=== PATIENT | female | born 1935 | race Caucasian/White ===

== ENCOUNTER → 2018-01-16 | Outpatient (CLI) | payer MEDICARE, BC ==
--- NOTE | 2018-01-16 14:17 | XR ---
EXAMINATION TYPE: XR cervical spine comp DATE OF EXAM: 01/16/2018 COMPARISON: NONE HISTORY: Stiff neck, pain TECHNIQUE: Four views are submitted. FINDINGS: The odontoid is intact. There are no compression deformities. The prevertebral soft tissue structur es are within normal limits. There is severe degenerative disc disease C4-5, C5-6 and C6-C7 with pos terior spondylosis. Facet arthropathy at all levels. Foraminal encroachment C4-5 and C5-C6 bilaterall y and at C3-C4 on the left. IMPRESSION: 1. Multilevel severe degenerative disc disease and facet arthropathy with multilevel foraminal encroa chment. Recommend MRI.
== END | disposition home or self-care (01) ==
LOC: RADXRMAIN 13:47
PROVIDERS: ATTEND Family Medicine
DX: M50.321 Other cervical disc degeneration at C4-C5 level (principal); M46.82 Other specified inflammatory spondylopathies, cervical region
CPT/HCPCS: 72050

== ENCOUNTER → 2018-02-07 | Outpatient (CLI) | payer MEDICARE, BC ==
--- NOTE | 2018-02-07 20:00 | MR ---
EXAMINATION TYPE: MR cervical spine wo con DATE OF EXAM: 02/07/2018 COMPARISON: NONE HISTORY: Neck Pain and stiffness TECHNIQUE: Multiplanar, multisequence images of the cervical spine were acquired. FINDINGS: Altered level disc desiccation is seen most severe at C5-C6. Cervical spinal cord signal is unremarkable. Multilevel degenerative endplate changes are seen without suspicious bone marrow signa l. Vertebral body heights and alignment are maintained. C2-C3: No evidence for degenerative disc disease. No disc bulge/herniation or protrusion. No Canal stenosis. Foramina are patent bilaterally. C3-C4: Very small central posterior disc osteophyte complex is seen as well as mild uncovertebral hyp ertrophy mildly narrowing the left neural foramen. Right neuroforamen and spinal canal are patent. C4-C5: There is a large broad-based disc bulge and disc osteophyte complex as well as uncovertebral h ypertrophy and facet arthropathy severely narrowing the right neural foramen and mildly narrowing the spinal canal with impression on the ventral thecal sac. Left neural foramen is patent. C5-C6: There is a left paracentral disc herniation effacing the thecal sac and obliterating the ventr al subarachnoid space. This creates mild left neural foraminal narrowing. Right neuroforamen is paten t. There is also resultant mild spinal canal stenosis. C6-C7: Uncovertebral hypertrophy and facet arthropathy creates mild left neural foraminal narrowing. Spinal canal and neural foramen are patent. Disc desiccation without herniation. C7-T1: No evidence for degenerative disc disease. No disc bulge/herniation or protrusion. No Canal stenosis. Foramina are patent bilaterally. IMPRESSION: 1. Left paracentral disc herniation at C5-C6 creating mild spinal canal stenosis and mild left neural foraminal narrowing. 2. Large broad-based disc bulge at C4-C5 and degenerative changes severely narrowing the right neural foramen and creating mild spinal canal stenosis. 3. Mild multilevel degenerative disc disease as described above. No evidence of vertebral body height loss or malalignment.
== END | disposition home or self-care (01) ==
LOC: RADMRIMAIN 13:09
PROVIDERS: ATTEND Family Medicine
DX: M48.02 Spinal stenosis, cervical region (principal); M99.71 Connective tissue and disc stenosis of intervertebral foramina of cervical region; M50.221 Other cervical disc displacement at C4-C5 level; M50.30 Other cervical disc degeneration, unspecified cervical region; M47.812 Spondylosis without myelopathy or radiculopathy, cervical region
CPT/HCPCS: 72141

== ENCOUNTER → 2019-04-04 | Outpatient (CLI) | payer MEDICARE, BC ==
--- NOTE | 2019-04-04 10:50 | XR ---
EXAMINATION TYPE: XR knee complete LT DATE OF EXAM: 04/04/2019 CLINICAL HISTORY: pain TECHNIQUE: Three views of the left knee are obtained. COMPARISON: None. FINDINGS: There is no acute fracture/dislocation. The tri-compartment joint spaces appear within no rmal limits. The overlying soft tissue appears unremarkable. IMPRESSION: There is no acute fracture or dislocation ICD 10 NO FRACTURE, INITIAL EVALUATION
== END | disposition home or self-care (01) ==
LOC: RADXRMAIN 04-03 10:12
PROVIDERS: ATTEND Family Medicine
DX: M25.562 Pain in left knee (principal)

== ENCOUNTER → 2022-06-22 | Outpatient (CLI) | payer MEDICARE, BC ==
--- NOTE | 2022-06-22 14:54 | XR ---
EXAMINATION TYPE: XR chest 2V DATE OF EXAM: 06/22/2022 COMPARISON: NONE TECHNIQUE: PA and lateral views submitted. HISTORY: Pain FINDINGS: The lungs are clear and there is no pneumothorax, pleural effusion, or focal pneumonia. There is a subtle deformity of the lateral margin of the right eighth rib. Hyperinflation suggests COPD. There i s a mild superior endplate compression fracture mid thoracic spine. A suggestion of a small granuloma right lung base measuring 6 mm. IMPRESSION: 1. No acute process. Subtle deformity of the lateral margin right eighth rib correlate for rib fractu re of indeterminate age with point tenderness. 2. Age indeterminate superior endplate compression fracture upper thoracic spine. Possibly chronic co rrelate clinically and with MRI as clinically warranted.
== END | disposition home or self-care (01) ==
LOC: RADXRMAIN 14:21
PROVIDERS: ATTEND Family Medicine
DX: M54.6 Pain in thoracic spine (principal)
CPT/HCPCS: 71046

== ENCOUNTER → 2024-09-25 | Outpatient (CLI) | payer MEDICARE, BC ==
--- NOTE | 2024-09-25 15:15 | US ---
EXAMINATION TYPE: US venous doppler duplex LE LT DATE OF EXAM: 09/25/2024 3:04 PM COMPARISON: NONE CLINICAL INDICATION: Female, 89 years old with history of R60.0 EDEMA; fell 1 month ago and injured l eft leg, left leg pain and mild swelling now, no h/o dvt TECHNIQUE: The lower extremity deep venous system is examined utilizing real time linear array sonog joel with graded compression, color doppler sonography, and spectral doppler. SIDE PERFORMED: Left FINDINGS: VESSELS IMAGED: Common Femoral Vein Deep Femoral Vein Greater Saphenous Vein * Femoral Vein Popliteal Vein Small Saphenous Vein * Proximal Calf Veins (* superficial vessels) Left Leg: Negative for DVT, Color Doppler imaging shows patency of the vessels. Spectral waveforms a re within normal limits. IMPRESSION: No evidence of deep vein thrombosis of the left lower extremity. [facility], , 09/25/2024 3:13 PM
== END | disposition home or self-care (01) ==
LOC: RADUSWWP 14:41
PROVIDERS: ATTEND Family Medicine
DX: R60.0 Localized edema (principal)